=== PATIENT | male | born 1990 ===

== ENCOUNTER 2022-07-21 14:11 | Outpatient (REF) | payer BC, SELFPAY ==
[2022-07-21 15:12] LABS: Influenza A PCR NEGATIVE (Negative); Influenza B PCR NEGATIVE (Negative); Resp Syncy Virus RNA Qual PCR NEGATIVE (Negative); SARS COV2 PCR INHOUSE NEGATIVE (Negative)
== END 2022-07-21 14:12 | disposition home or self-care (01) ==
LOC: HO.LNP 14:11
PROVIDERS: Visit Provider Internal Medicine
DX: R05.9 Cough, unspecified (principal); R50.9 Fever, unspecified; Z20.822 Contact with and (suspected) exposure to COVID-19
CPT/HCPCS: 0241U